=== PATIENT | male | born 1965 | race Caucasian/White ===

== ENCOUNTER 2018-03-30 17:48 | Emergency (ER) | payer SELFPAY ==
[~2018-03-30] VITALS: Ht 165.1 cm; Wt 77.1 kg
--- NOTE | 2018-03-30 17:53 | NUR ---
called into ER---pt continues to fill paperwork. family next to pt---called in 3 x's will continue to call in 10 mins
[2018-03-30 18:06] VITALS: BP 134/96
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
--- NOTE | 2018-03-30 18:22 | NUR ---
xray by bedside
--- NOTE | 2018-03-30 19:02 | NUR ---
Dr. Aranda evaluating patient at bedside.
--- NOTE | 2018-03-30 19:08 | NUR ---
Pt report given to Nathalie reyes. Transfer of care at this time.
--- NOTE | 2018-03-30 20:00 | NUR ---
Patient discharged with v/s stable. Patient left without discharge papers.Written and verbal after care instructions given and explained. Patient alert, oriented and verbalized understanding of instructions. Ambulatory with steady gait. All questions addressed prior to discharge. ID band removed. Patient advised to follow up with PMD. Rx of naprosyn given. Patient educated on indication of medication including possible reaction and side effects. Opportunity to ask questions provided and answered.
[2018-03-30 20:01] VITALS: BP 108/71
== END 2018-03-30 20:00 | disposition home or self-care (01) ==
LOC: MED 17:48
DX: S99.922A Unspecified injury of left foot, initial encounter (principal); V09.9XXA Pedestrian injured in unspecified transport accident, initial encounter; Y93.89 Activity, other specified; Y92.89 Other specified places as the place of occurrence of the external cause; Y99.8 Other external cause status
CPT/HCPCS: 73590; 73630; 99284; Q0092

== ENCOUNTER 2018-04-01 11:50 | Emergency (ER) | payer SELFPAY ==
[~2018-04-01] VITALS: Ht 162.6 cm; Wt 64.0 kg
--- NOTE | 2018-04-01 12:08 | NUR ---
Patient ambulated to bed 12. RN evaluating patient at bedside.
[2018-04-01 12:11] VITALS: BP 144/90
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
[2018-04-01 12:51] VITALS: BP 144/90
--- NOTE | 2018-04-01 12:51 | NUR ---
PATIENT LEFT WITHOUT BEING SEEN. DR CALERO MADE AWARE. AMB TO CAR WITH SON WITH STEADY GAIT. RR EVEN AND UNLABORED.
== END 2018-04-01 12:51 | disposition left against medical advice (07) ==
LOC: MED 11:50
DX: M79.672 Pain in left foot (principal); Z53.21 Procedure and treatment not carried out due to patient leaving prior to being seen by health care provider